=== PATIENT | female | born 1960 | race Caucasian/White ===

== ENCOUNTER → 2022-05-21 | Day surgery (SDC) | payer MEDICARE, OTHER ==
[~2022-05-21] VITALS: Ht 167.6 cm; Wt 70.3 kg
[~2022-05-21] MED LIST: CYMBALTA60 MG PO; OXYCODONE-ACET1 EACH PO; ROPINIROLE HCL0.5 MG PO; ROXICODONE15 MG PO; TRAZODONE HCL50 MG PO; TRELEGY ELLIPT1 EACH INH
== END | disposition home or self-care (01) ==
LOC: OR 05:57
PROVIDERS: Orthopaedic Surgery
PROC: 0PSQ04Z Reposition Left Metacarpal with Internal Fixation Device, Open Approach (ICD-10-PCS; 2022-05-21)
PROC: 3E0T3BZ Introduction of Anesthetic Agent into Peripheral Nerves and Plexi, Percutaneous Approach (ICD-10-PCS; 2022-05-21)
PROC: 0PSJ04Z Reposition Left Radius with Internal Fixation Device, Open Approach (ICD-10-PCS; principal; 2022-05-21 12:45)
DX: S62.327A Displaced fracture of shaft of fifth metacarpal bone, left hand, initial encounter for closed fracture (principal); S52.572A Other intraarticular fracture of lower end of left radius, initial encounter for closed fracture; J44.9 Chronic obstructive pulmonary disease, unspecified; Z79.51 Long term (current) use of inhaled steroids; Z79.899 Other long term (current) drug therapy; Z87.891 Personal history of nicotine dependence; W01.0XXA Fall on same level from slipping, tripping and stumbling without subsequent striking against object, initial encounter
CPT/HCPCS: 73100; 76000; C1713; J0690; J1100; J1885; J2250; J2370; J2704; J2795; J3010